=== PATIENT | female | born 1990 | race African-American/Black ===

== ENCOUNTER 2018-08-29 15:34 | Emergency (ER) | payer OTHER ==
[~2018-08-29] VITALS: Wt 56.0 kg
[2018-08-29] MEDS ORDERED: SOD CHLORIDE 0.9% 1,000 ML IV STA (15:57)
--- NOTE | 2018-08-29 17:04 | ERD ---
ER Documentation Chief Complaint Chief Complaint ABD PAIN X 2-3 MONTHS HPI This is a 28-year-old woman who saw an ivory colored thin "worm" in her stool measuring about 1 foot in length a few weeks ago, she also has looked through he r stool and states she has noticed worm body segments throughout her stool over the last couple of weeks. She complains of a few months of abdominal cramping, intermittent colicky pain, intermittent loose diarrhea, bloating, belching which is usually worse after eating or at nighttime. She states she is also been craving sweets much more frequently which is not normal for her, she traveled to [facility] last summer and was there for about 3 weeks. While in [facility] she admits to eating a high meat and fish diet. She denies fevers or chills. ROS All systems reviewed and are negative except as per history of present illness. Medications Home Meds Active Scripts Praziquantel* (Biltricide*) 600 Mg Tab, 600 MG PO ONCE, #2 TAB Prov:NELL PRICE MD 08/29/18 Allergies Allergies: Coded Allergies: No Known Allergy (Unverified , 08/29/18) PMhx/Soc Medical and Surgical Hx: pt denies Medical Hx, pt denies Surgical Hx History of Surgery: No Anesthesia Reaction: No Hx Neurological Disorder: No Hx Respiratory Disorders: No Hx Cardiac Disorders: No Hx Miscellaneous Medical Probl: No Hx Alcohol Use: No Hx Substance Use: No Hx Tobacco Use: No Smoking Status: Never smoker FmHx Family History: No diabetes Physical Exam Vitals Vital Signs Date Temp Pulse Resp B/P (MAP) Pulse Ox O2 O2 Flow FiO2 Time Delivery Rate 08/29/18 97.9 71 18 110/57 100 Room Air 17:40 (74) 08/29/18 98.2 78 18 115/56 99 15:38 (75) Physical Exam GENERAL: Well-developed, well-nourished, well-hydrated, in no apparent distress, looks nontoxic in appearance HEENT: Moist mucous membranes, pink conjunctiva, no cervical spine tenderness or step-off deformities, no goiter, no jaundice or icterus, extraocular movements intact without pain. No submandibular induration, and no pharyngeal erythema NEURO: Alert and oriented 3, cranial nerves II through XII intact bilaterally, pupils equal round reactive to light, no focal deficits or facial asymmetry, sensation intact distally Strength 5/5 in upper and lower extremities bilaterally CARDIAC: Regular rate and rhythm, no murmurs rubs or gallops LUNGS: Clear bilaterally no wheezing crackles or stridor ABDOMEN: Soft nontender, no guarding, no rigidity, no rebound, no psoas sign no obturator sign. Anal inspection was performed by female physician assistant baseball coach with a female nurse power brake operator and no pinworms were seen SKIN: Warm and dry to touch, no abrasions, contusions, or hematomas, no lacerations, no ecchymosis, no target lesions, and without ulcers EXTREMITIES: No clubbing cyanosis or edema, calves are bilaterally symmetrical, no Homans sign, no popliteal cord sign. Distal pulses equal and bilateral PSYCH: Normal affect without agitation or irritability Result Diagram: 08/29/18 1615 08/29/18 1615 Results 24 hrs Laboratory Tests Test 08/29/18 16:14 08/29/18 16:15 POC Beta HCG, Qualitative NEGATIVE White Blood Count 6.5 10^3/ul Red Blood Count 4.03 10^6/ul Hemoglobin 11.7 g/dl Hematocrit 36.3 % Mean Corpuscular Volume 90.1 fl Mean Corpuscular Hemoglobin 29.0 pg Mean Corpuscular Hemoglobin Concent 32.2 g/dl Red Cell Distribution Width 12.9 % Platelet Count 329 10^3/UL Mean Platelet Volume 9.0 fl Immature Granulocytes % 0.200 % Neutrophils % 53.9 % Lymphocytes % 32.9 % Monocytes % 7.5 % Eosinophils % 4.3 % Basophils % 1.2 % Nucleated Red Blood Cells % 0.0 /100WBC Immature Granulocytes # 0.010 10^3/ul Neutrophils # 3.5 10^3/ul Lymphocytes # 2.1 10^3/ul Monocytes # 0.5 10^3/ul Eosinophils # 0.3 10^3/ul Basophils # 0.1 10^3/ul Nucleated Red Blood Cells # 0.0 10^3/ul Urine Color YELLOW Urine Clarity SLIGHTLY CLOUDY Urine pH 5.0 Urine Specific [place] 1.021 Urine Ketones NEGATIVE mg/dL Urine Nitrite NEGATIVE mg/dL Urine Bilirubin NEGATIVE mg/dL Urine Urobilinogen NEGATIVE mg/dL Urine Leukocyte Esterase NEGATIVE Pedro Luis/ul Urine Microscopic RBC 0 /HPF Urine Microscopic WBC 4 /HPF Urine Squamous Epithelial Cells FEW /HPF Urine Bacteria FEW /HPF Urine Mucus FEW /HPF Urine Hemoglobin NEGATIVE mg/dL Urine Glucose NEGATIVE mg/dL Urine Total Protein NEGATIVE mg/dl Sodium Level 141 mmol/L Potassium Level 3.9 mmol/L Chloride Level 105 mmol/L Carbon Dioxide Level 29 mmol/L Anion Gap 7 Blood Urea Nitrogen 15 mg/dl Creatinine 0.76 mg/dl Est Glomerular Filtrat Rate mL/min > 60 mL/min Glucose Level 73 mg/dl Calcium Level 8.8 mg/dl Total Bilirubin 0.3 mg/dl Direct Bilirubin 0.00 mg/dl Indirect Bilirubin 0.3 mg/dl Aspartate Amino Transf (AST/SGOT) 25 IU/L Alanine Aminotransferase (ALT/SGPT) 18 IU/L Alkaline Phosphatase 103 IU/L Total Protein 7.2 g/dl Albumin 3.8 g/dl Globulin 3.40 g/dl Albumin/Globulin Ratio 1.11 Lipase 218 U/L Current Medications Medications Dose Sig/Frantz Start Time Status Last (Trade) Ordered Route PRN Stop Time Admin Dose Reason Admin Sodium 1,000 ml @ Q1H STAT 08/29/18 DC 08/29/18 Chloride 1,000 mls/hr IV 15:57 16:19 08/29/18 16:56 Procedures/MDM IV line was established patient was placed on cardiac catheterization technologist rhythm strip revealed a sinus rhythm at about 80 bpm with upright P and T waves. Patient was afebrile I administered 1 L normal saline IV. CBC reveals mild anemia, electrolytes are normal, liver function test normal, test negative, urinalysis negative for infection. CT scan of the abdomen pelvis was unremarkable, please refer to radiologist dictation for full report. Patient has a concerning story for active tapeworm infection and definitely has exposure in [facility]. She will have to be treated with praziquantel, which I prescribed 600 mg p.o. 2 doses one now one in 10 days. I discussed all the risks and side effects associated with praziquantel and she understood them and agreed with plan Differential diagnoses considered, included but not limited to acute coronary syndrome, pulmonary embolism, aortic dissection, abdominal aortic aneurysm, sepsis, stroke, meningitis, encephalitis, pneumonia, appendicitis, cholecystitis, bowel obstruction, pyelonephritis, nephrolithiasis, cystitis, as well as metabolic, hematologic, and electrolyte abnormalities. As well as abscess, cellulitis, fractures, and dislocations. Patient feels much better at this time, and vital signs are normal, symptoms have improved. I did give strict instructions to return to the ED if symptoms continue or worsen, patient will otherwise follow-up with primary care physician. Patient understood instructions and agreed to plan. Disclaimer: Inadvertent spelling and grammatical errors are likely due to EHR/dictation software use and do not reflect on the overall quality of patient care. Also, please note that the electronic time recorded on this note does not necessarily reflect the actual time of the patient encounter. Departure Diagnosis: Primary Impression: Abdominal pain Abdominal location: generalized Qualified Codes: R10.84 - Generalized abdominal pain Additional Impression: Tapeworm infection Condition: Good NELL PRICE MD August 29, 2018 17:04
[2018-08-29] MEDS ORDERED: [UNRECOGNIZED DRUG - CODE] PO (17:27)
[2018-08-29 17:40] VITALS: BP 110/57; PULSE 71; RESP 18
== END 2018-08-29 17:45 | disposition home or self-care (01) ==
LOC: FTE 15:34
DX: B71.9 Cestode infection, unspecified (principal)
CPT/HCPCS: 74176; 80053; 81001; 81003; 81025; 83690; 85025; J7030; 36415; 96360